=== PATIENT | female | born 1960 | race Hispanic/Latino ===

== ENCOUNTER → 2021-03-08 17:46 | Outpatient (CLI) | payer OTHER, SELFPAY | PROVIDERS: Referring Provider Neurological Surgery; Visit Provider Neurological Surgery | DX: D32.9 Benign neoplasm of meninges, unspecified (principal) ==

== ENCOUNTER → 2021-03-22 12:49 | Outpatient (CLI) | payer OTHER, SELFPAY ==
--- NOTE | 2021-03-22 12:56 | DI.MRI.S_ITS ---
PROCEDURE: MR HEAD/BRAIN WO/W CON INDICATIONS: Previously given history foramen magnum mass. TECHNIQUE: Noncontrast axial T1 spin echo, axial T2 fast spin echo, sagittal and axial FLAIR, coronal T2 fast spin echo, axial gradient echo, axial diffusion and ADC through the brain. After the administration of contrast, axial and coronal 3D VIBE or T1 spin echo with fat saturation through the brain. COMPARISON: [facility], MR, MR BRAIN WITH/WITHOUT CONTRAST, 06/01/2020, 13:16. Outside Film, CT, CT HEAD WITHOUT CONTRAST, 04/08/2020, 18:02. FINDINGS: Image quality: Diagnostic, with note made of motion artifact. CSF Spaces: Basal cisterns are patent. No extra-axial fluid collections. Ventricles are normal in size and shape. 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 Within this region, there is a mild degree of increased enhancement seen (as on series 14, image 77), yet without a mass identified. No midline shift. No intracranial bleeds or masses. No abnormal intracranial enhancement. The brainstem appears normal. Diffusion-weighted images demonstrate no acute ischemic insults. No chronic ischemic insults. Normal intravascular flow voids are present. Skull and face: Posterior craniotomy changes are seen. Calvarial marrow is normal in signal. Orbits appear normal. Sinuses: Sinuses and mastoids appear clear. 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 There is a mild amount enhancement seen within the postoperative bed, which is likely within postoperative limits. Differential diagnosis includes a minimal amount of residual mass, yet this is considered to be less likely. Please consider follow-up MRI in 6-12 months for further evaluation. Dictated by: Johnathan Carvalho M.D. on 03/22/2021 at 14:18 Approved by: Johnathan Carvalho M.D. on 03/22/2021 at 14:22
== END ==
PROVIDERS: Referring Provider Neurological Surgery; Visit Provider Neurological Surgery
DX: D32.9 Benign neoplasm of meninges, unspecified (principal)
CPT/HCPCS: 70553